=== PATIENT | female | born 1990 | race American Indian/Alaskan Native ===

== ENCOUNTER 2024-01-23 04:15 | Day surgery (SDC) | payer OTHER ==
[2024-01-22 13:20] VITALS: BMI 27.8
[2024-01-23] MEDS ORDERED: PROPOFOL 20 ML ONE (07:19)
[2024-01-23] MEDS ORDERED: MIDAZOLAM HCL 2 MG/2 ML SINGLE DOSE VIAL ONE (07:19)
[2024-01-23] MEDS ORDERED: DEXAMETHASONE SOD PHOSPHATE 4 MG/1 ML VIAL ONE ×2 (07:21→07:58)
[2024-01-23] MEDS ORDERED: LIDOCAINE HCL/PF 2% SDV 5ML VIAL ONE (07:21)
[2024-01-23] MEDS ORDERED: ONDANSETRON 4 MG/2 ML VIAL ONE (07:21)
[2024-01-23] MEDS ORDERED: ACETAMINOPHEN 325 MG TABLET (FP) PO PRN (07:46)
[2024-01-23] MEDS ORDERED: IBUPROFEN 400 MG TABLET (FP) PO PRN (07:46)
[2024-01-23] MEDS: ceFAZolin SODIUM 1 GM VIAL IVPB ONE (07:58)
[2024-01-23] MEDS ORDERED: ceFAZolin SODIUM 1 GM VIAL ONE (08:01)
[2024-01-23] MEDS ORDERED: oxyCODONE HCL 5 MG TABLET PO PRN (08:17)
[2024-01-23] MEDS ORDERED: ONDANSETRON 4 MG/2 ML VIAL IVPUSH PRN (08:17)
[2024-01-23] MEDS: ACETAMINOPHEN 1000 MG/100 ML BAG IVPB ONE (08:27)
[2024-01-23] MEDS ORDERED: LACTATED RINGERS SOLUTION 1,000 ML IV SCH (08:30)
[2024-01-23 11:16] VITALS: BP 110/57; PULSE 69; RESP 20; TEMP 97.3
== END 2024-01-23 09:54 | disposition home or self-care (01) ==
LOC: JASU-SURG 04:15
PROVIDERS: ATTEND Obstetrics & Gynecology
PROC: 10D17ZZ Extraction of Products of Conception, Retained, Via Natural or Artificial Opening (ICD-10-PCS; principal; 2024-01-23 07:30)
DX: O02.1 Missed abortion (principal)
CPT/HCPCS: 88305-TC; 94760; J0131